=== PATIENT | male | born 1990 | race Hispanic/Latino ===

== ENCOUNTER 2016-09-13 12:37 | Emergency (ER) | payer BC ==
[2016-09-13 12:42] VITALS: TEMP 97.2
[2016-09-13] MEDS ORDERED: diaZEpam 10 mg/2 ml Inj IVP ONE (13:16)
--- NOTE | 2016-09-13 13:33 | ED PDOC ---
HPI: Back Time Seen by Provider: 09/13/16 13:30 Chief Complaint (Nursing): Back Pain Chief Complaint (Provider): back pain History Per: Patient History/Exam Limitations: no limitations Additional Complaint(s): 26yo M in ED for eval of lower back pain. 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 pt states he had PTx 5 years ago at time of injury and guajardo no flare up since. Past Medical History Reviewed: Historical Data, Nursing Documentation, Vital Signs Vital Signs: Last Vital Signs Temp 97.2 F L 09/13/16 12:40 Pulse 69 09/13/16 12:40 Resp 16 09/13/16 12:40 BP 127/77 09/13/16 12:40 Pulse Ox 97 09/13/16 12:40 - Medical History PMH: No Chronic Diseases - Family History Family History: States: No Known Family Hx - Home Medications Home Medications: Ambulatory Orders Medication Instructions Recorded Cyclobenzaprine [Cyclobenzaprine 10 mg PO BID #14 tab 09/13/16 HCl] Ibuprofen [Motrin] 400 mg PO Q6 #30 tab 09/13/16 Tramadol HCl [Ultram] 50 mg PO Q6 #15 tab 09/13/16 - Allergies Allergies/Adverse Reactions: Allergies Allergy/AdvReac Type Severity Reaction Status Date / Time Penicillins Allergy RASH Verified 09/13/16 12:42 Review of Systems ROS Statement: Except As Marked, All Systems Reviewed And Found Negative Constitutional: Negative for: Fever, Chills Gastrointestinal: Negative for: Nausea, Vomiting, Abdominal Pain, Constipation, Melena Genitourinary Male: Negative for: Dysuria, Frequency, Incontinence, Hematuria, Penile Discharge, Scrotal Pain, Rash, Penile Pain Musculoskeletal: Positive for: Back Pain Physical Exam - Reviewed Nursing Documentation Reviewed: Yes Vital Signs Reviewed: Yes - Physical Exam Appears: Positive for: Non-toxic, No Acute Distress, Uncomfortable Head Exam: Positive for: ATRAUMATIC, NORMAL INSPECTION, NORMOCEPHALIC Skin: Positive for: Normal Color, Warm, DRY Eye Exam: Positive for: EOMI, Normal appearance, PERRL Neck: Positive for: Normal, Painless ROM Cardiovascular/Chest: Positive for: Regular Rate, Rhythm Respiratory: Positive for: CNT, Normal Breath Sounds Gastrointestinal/Abdominal: Positive for: Normal Exam, Bowel Sounds, Soft. Negative for: Tenderness Back: Positive for: Other (unable to meme to perform PE prior to pain control. however nuerovasc intact. no calf tenderness ) Extremity: Positive for: Normal ROM Neurologic/Psych: Positive for: Alert, Oriented - ECG O2 Sat by Pulse Oximetry: 97 - Progress ED Course And Treament: will CT lumbar and give valium and torodol IV. re-eval. Medical Decision Making Medical Decision Making: PT with sciatica on CT no evidence of renal stone. pt improved in Ed Pt advised to have orthopedics spine f/u for MRI. pt advised to use flexril for pain and motrin for pain. stable and well appearing. Disposition - Clinical Impression Clinical Impression: Sciatica - Patient ED Disposition Is Patient to be Admitted: No Counseled Patient/Family Regarding: Studies Performed, Diagnosis, Need For Followup, Rx Given - Disposition Disposition: Routine/Home Disposition Time: 15:48 Condition: STABLE Prescriptions: Cyclobenzaprine [Cyclobenzaprine HCl] 10 mg PO BID #14 tab Ibuprofen [Motrin] 400 mg PO Q6 #30 tab Tramadol HCl [Ultram] 50 mg PO Q6 #15 tab Instructions: Sciatica (ED), Lumbar Radiculopathy (ED), Back Exercises (ED) Forms: [facility] ED School/Work Excuse
[2016-09-13] MEDS ORDERED: diaZEpam 10 mg/2 ml Inj ONE (13:43)
--- NOTE | 2016-09-13 14:54 | CT ---
PROCEDURE: CT Lumbar Spine without contrast HISTORY: lower back pain severe COMPARISON: Comparison made with prior MRI of the lumbar spine dated 05/18/2013. TECHNIQUE: Axial computed tomography images were obtained of the lumbar spine without the use of intravenous contrast. Coronal and sagittal reformatted images were created and reviewed. Radiation dose: Total exam DLP = 430.35 mGy-cm. This CT exam was performed using one or more of the following dose reduction techniques: Automated exposure control, adjustment of the mA and/or kV according to patient size, and/or use of iterative reconstruction technique. FINDINGS: VERTEBRAE: The current study reveals no evidence of acute compression fractures no retropulsed fragments. Vertebral bodies exhibit normal stature and alignment. Facets normally aligned. DISCS/SPINAL CANAL/NEURAL FORAMINA: Degenerative spondylosis again noted at the L5-S1 level. Changes include disc space narrowing more so along the anterior disc margin with small to medium-sized central and bilateral (left greater than right) disc herniation which does result in mild flattening of the ventral surface of the thecal sac and mild posterolateral displacement of the descending left-sided S1 nerve root. Disk appears to reach the anteromedial aspect of the descending right S1 nerve root. Facets are slightly overgrown. The overall central canal measured at midline does appear minimally narrowed. Exit foramina appear adequate. At the L4-L5 level, there is adequate disc height. Minimal central and bilateral disc bulge results in some flattening of the ventral surface of the thecal sac and also appears to reach the ventral surfaces of the descending L5 nerve roots. The overall central canal is quite capacious. Facets are mildly hypertrophic right greater than left. Exit foramina are adequate. The remaining levels exhibit relatively adequate disc height. No disc herniations nor significant disc bulges. The overall central canal and exit foramina appear adequate. PARASPINAL SOFT TISSUES: Paraspinal soft tissues unremarkable. OTHER FINDINGS: Few vague hyperdense foci seen in the renal collecting systems both kidneys more so on the right. Findings could be due to dehydration however microcalcification not excluded IMPRESSION: Degenerative spondylosis L5-S1 level with small central and bilateral (left larger than right) disc herniation that results in some flattening of the ventral surface of the thecal sac and mild posterolateral displacement of the descending left-sided S1 nerve root.
[2016-09-13 15:32] LABS: RBC URINE 2 /hpf (0-3); URINE BILIRUBIN NEGATIVE (NEGATIVE); URINE BLOOD NEGATIVE (NEGATIVE); URINE COLOR YELLOW (YELLOW); URINE GLUCOSE (UA) NEG (Normal); URINE KETONE NEGATIVE (NEGATIVE); URINE LEUKOCYTE ESTERASE NEG Leu/uL (Negative); URINE PROTEIN NEGATIVE (NEGATIVE); URINE UROBILINOGEN 0.2-1.0 mg/dL (0.2-1.0); WBC URINE < 1 /hpf (0-5)
[2016-09-13 16:28] VITALS: BP 132/78; PULSE 67; RESP 18; O2SAT 100
== END 2016-09-13 16:41 | disposition home or self-care (01) ==
LOC: H.ER 12:37
DX: M54.30 Sciatica, unspecified side (principal)
CPT/HCPCS: 72131; 81003; 96374; 96375; 99283; J1885; J2270; J3360